=== PATIENT | male | born 1980 | race Caucasian/White ===

== ENCOUNTER 2020-03-27 21:10 | Emergency (ER) | payer MEDICAID ==
[~2020-03-27] VITALS: Ht 177.8 cm; Wt 73.0 kg
[2020-03-27 23:24] LABS: CHLORIDE 105 mEq/L (98-107)
[2020-03-27 23:27] LABS: BASOPHILS % 0.4 % (0.0-2.0); HEMATOCRIT. 44.5 % (42.0-52.0); HEMOGLOBIN. 14.6 g/dL (14.0-18.0); LYMPHOCYTES % 14.5 % (20.0-50.0); MEAN CORPUSCULAR HEMOGLOBIN 28.6 pg (28.0-32.0); MEAN CORPUSCULAR VOLUME 87.2 fL (80.0-94.0); MEAN PLATELET VOLUME 8.3 fl (7.4-10.4); MONOCYTES % 5.3 % (2.0-8.0); NEUTROPHILS % 77.8 % (40.0-76.0); PLATELET 238 x1000/uL (130-400)
[2020-03-27 23:29] LABS: ETHANOL BLOOD < 10 mg/dL
[2020-03-28 00:11] LABS: CLARITY URINE CLEAR (CLEAR); COLOR URINE YELLOW (YELLOW); KETONES URINE NEGATIVE (NEGATIVE); LEUKOCYTE ESTERASE URINE 2+ (NEGATIVE); NITRITE URINE NEGATIVE (NEGATIVE); OCCULT BLOOD URINE TRACE (NEGATIVE); PH URINE 5.5 (4.5-8.0); PROTEIN URINE NEGATIVE (NEGATIVE); SPECIFIC GRAVITY URINE 1.026 (1.005-1.030)
[2020-03-28] MEDS ORDERED: ACETAMINOPHEN 325MG TABLET PO ONE (00:15)
[2020-03-28 00:19] LABS: *AMPHETAMINES SCREEN URINE PRESUMTIVE POSITIVE (NEGATIVE); *BENZODIAZEPINES SCREEN URINE NEGATIVE (NEGATIVE)
[2020-03-28 00:20] LABS: *COCAINE SCREEN URINE NEGATIVE (NEGATIVE); CANNABINOID URINE SCREEN PRESUMTIVE POSITIVE (NEGATIVE); METHADONE URINE SCREEN NEGATIVE (NEGATIVE); OPIATES URINE SCREEN NEGATIVE (NEGATIVE); PHENCYCLIDINE URINE SCREEN NEGATIVE (NEGATIVE)
[2020-03-28 00:22] LABS: *BARBITURATES SCREEN URINE NEGATIVE (NEGATIVE)
[2020-03-28] MEDS ORDERED: SUMATRIPTAN SUCCINATE 6MG/0.5ML VIAL SUBCUT ONE (00:45)
[2020-03-28] MEDS ORDERED: ACETAMINOPHEN 500MG TABLET PO ONE (08:15)
[2020-03-28] MEDS ORDERED: LORAZEPAM 2MG/ML CPJ IM ONE (11:00)
[2020-03-28] MEDS ORDERED: DIPHENHYDRAMINE 50MG/ML VIAL IM ONE (11:00)
[2020-03-28] MEDS ORDERED: HALOPERIDOL LACTATE 5MG/ML VIAL IM ONE ×2 (11:00→11:30)
[2020-03-28] MEDS ORDERED: LORAZEPAM 2MG/ML CPJ IM STA (11:19)
[2020-03-28] MEDS ORDERED: DIPHENHYDRAMINE 50MG/ML VIAL IM STA (11:19)
[2020-03-28] MEDS ORDERED: CEFTRIAXONE 1 G PREMIX 50 ML IV ONE (18:00)
[2020-03-28] MEDS ORDERED: SULFAMETHOXAZOLE/TRIMETHOPRIM 800/160MG TABLET PO ONE (19:00)
[2020-03-28] MEDS ORDERED: SODIUM CHLORIDE 0.9% 1,000 ML IV ONE (19:15)
[2020-03-29 07:40] VITALS: BP 112/72
== END 2020-03-29 07:36 | disposition home or self-care (01) ==
LOC: ER 21:10
DX: F19.10 Other psychoactive substance abuse, uncomplicated (principal); R45.851 Suicidal ideations; R51.9 Headache, unspecified; Z87.820 Personal history of traumatic brain injury
CPT/HCPCS: 36415; 80053; 80305; 80307; 80320; 80329; 81003; 85025; 93005; 96372; 99285; G0480

== ENCOUNTER 2022-03-03 19:40 | Emergency (ER) | payer OTHER ==
[~2022-03-03] VITALS: Ht 180.3 cm; Wt 77.0 kg
[2022-03-03] MEDS ORDERED: KETOROLAC 60MG/2ML VIAL IM ONE (21:45)
[2022-03-03] MEDS ORDERED: HYDROCODONE/ACETAMINOPHEN 10/325MG TABLET PO ONE (21:45)
[2022-03-03] MEDS ORDERED: BACITRACIN ZINC OINT UDPKT TOP ONE (21:45)
[2022-03-03] MEDS ORDERED: SUMATRIPTAN SUCCINATE 25MG TABLET PO ONE (21:45)
[2022-03-03] MEDS ORDERED: TETANUS, DIPHTHERIA, PERTUSSIS VAC/PF 0.5ML (>10YR OLD) IM ONE (21:45)
[2022-03-04] MEDS ORDERED: AMOXICILLIN/POTASSIUM CLAVULANATE 875/125MG TAB PO ONE
[2022-03-04] MEDS ORDERED: AMOX1TAB16 MT (01:54)
[2022-03-04] MEDS ORDERED: IBUP-2030 MT (01:54)
[2022-03-04 02:45] VITALS: BP 110/70
== END 2022-03-04 02:50 | disposition home or self-care (01) ==
LOC: ER 19:40
DX: S60.571A Other superficial bite of hand of right hand, initial encounter (principal); S50.872A Other superficial bite of left forearm, initial encounter; S50.871A Other superficial bite of right forearm, initial encounter; S80.272A Other superficial bite of left knee, initial encounter; S80.271A Other superficial bite of right knee, initial encounter; J45.909 Unspecified asthma, uncomplicated; G43.909 Migraine, unspecified, not intractable, without status migrainosus; F16.10 Hallucinogen abuse, uncomplicated; F15.10 Other stimulant abuse, uncomplicated; W54.0XXA Bitten by dog, initial encounter; Y93.89 Activity, other specified; Y92.018 Other place in single-family (private) house as the place of occurrence of the external cause
CPT/HCPCS: 73090; 73130; 73562; 90471; 90715; 96372; 99284; J1885